=== PATIENT | female | born 1970 | race Caucasian/White ===

== ENCOUNTER → 2017-01-22 | Outpatient (CLI) | payer OTHER | LOC: MW.CHRC 09:50 | PROVIDERS: ATTEND Family Medicine | DX: Z00.00 Encounter for general adult medical examination without abnormal findings (principal); R07.89 Other chest pain; R00.2 Palpitations; Z53.9 Procedure and treatment not carried out, unspecified reason ==

== ENCOUNTER → 2017-01-28 | Outpatient (CLI) | payer OTHER ==
--- NOTE | 2017-01-29 08:59 | MR ---
EXAMINATION: MRI of the brain with and without contrast. TECHNIQUE: Multiplanar and multisequence imaging of the brain without and following the administrati on of 16 mL of MultiHance. HISTORY: Tremor. FINDINGS: Cerebral hemispheres and the deep nuclei are without hemorrhage, mass, edema, enhancement or atroph y. There are several subtle very tiny subcortical white matter FLAIR intensities noted .No abnorma l diffusion restriction. No extraaxial collections or hemorrhage. The ventricular system is of normal size and configuration without hydrocephalus. The brainstem and cerebellum are without hemorrhage, mass, edema, gliosis, en hancement or atrophy. The carotid basilar artery flow voids are intact. The otomastoid airspaces are clear. No internal auditory canal or cerebellopontine angle masses or enhancement. The paranasal sinuses are clear. Globes, optic nerves, orbital apices, optic chiasm, optic tracts, and visual cortices are unremarka ble. The pituitary and sella turcica are unremarkable. No meningeal enhancement. The craniocervic al junction is unremarkable. No siderosis or evidence of vascular malformation. The calvarium is intact. IMPRESSION: 1. Tiny subtle predominantly subcortical white matter FLAIR intensities, nonspecific. 2. Otherwise unremarkable MRI of the brain.
== END ==
LOC: MW.MRI 10:32
PROVIDERS: ATTEND Family Medicine
DX: G25.2 Other specified forms of tremor (principal)
CPT/HCPCS: 70553; 70553-26

== ENCOUNTER 2018-01-09 19:45 | Emergency (ER) | payer OTHER ==
--- NOTE | 2018-01-09 20:16 | EDM.PDOC ---
ED HPI GENERAL MEDICAL PROBLEM - General Chief Complaint: Lower Extremity Injury/Pain Stated Complaint: LEFT PINKIE TOE PAIN Time Seen by Provider: 01/09/18 20:05 Source of Information: Reports: Patient History Limitations: Reports: No Limitations - History of Present Illness INITIAL COMMENTS - FREE TEXT/NARRATIVE: HISTORY AND PHYSICAL: History of present illness: [Patient comes to the emergency room complaining of left fifth toe pain. She was trying to move her puppies out of the way when she smacked her toe against the kitchen counter. Her fifth toe moved laterally and the rest of her toes moved medially. She complains of pain and deformity to her fifth toe. No prior history of injury. She took some ibuprofen for her pain is provided some mild improvement.] Review of systems: As per history of present illness and below otherwise all systems reviewed and negative. Past medical history: As per history of present illness and as reviewed below otherwise noncontributory. Surgical history: As per history of present illness and as reviewed below otherwise noncontributory. Social history: No reported history of drug or alcohol abuse. Family history: As per history of present illness and as reviewed below otherwise noncontributory. Physical exam: HEENT: Atraumatic, normocephalic. Extremities: left fifth toe is displaced laterally and appears deformed. Is tender with palpation. Pedal pulses are 2+. Cap RF is less than 2 seconds. No foot pain with palpation. No other toe pain or deformity appreciated. Neurovascular unremarkable. Neuro: Awake, alert, oriented. Motor and sensory unremarkable throughout. Exam nonfocal. Diagnostics: [Left foot x-ray] Impression: [L 5th toe fracture] Plan: Discussed w/ patient that her toe is fractured. 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 Hydrocodone 5/325mg (#10) sig: One by mouth every 4-6 hours as needed for pain 0 refills sent to [facility]. alternate Tylenol w/ ibuprofen prn pain. Rest, ice , elevation. Strict return precautions are reviewed. Pt in agreement w/ today's plan. Definitive disposition and diagnosis as appropriate pending reevaluation and review of above. left 5th toe Pain Score (Numeric/FACES): 8 - Related Data Allergies Allergy/AdvReac Type Severity Reaction Status Date / Time No Known Allergies Allergy Verified 01/09/18 19:58 Home Meds: Home Meds ALPRAZolam [Alprazolam ER] 1 mg PO DAILY 11/08/16 [History] Amitriptyline [Elavil] 25 mg PO ONETIME 11/08/16 [History] Eletriptan HBr [Relpax] 20 mg PO DAILY 11/08/16 [History] Etodolac [Etodolac ER] 400 mg PO Q12HR PRN 11/08/16 [History] Levothyroxine [Synthroid] 100 mcg PO ACBREAKFAST 11/08/16 [History] Verapamil [Calan SR] 240 mg PO DAILY 11/08/16 [History] buPROPion HCl [buPROPion SR] 150 mg PO DAILY 11/08/16 [History] Past Medical History Other Cardiovascular History: MVP Endocrine/Metabolic History: Reports: Hyperthyroidism - Past Surgical History Female Surgical History: Reports: Endometrial Ablation Dermatological Surgical History: Reports: Plastic Surgical Reconstruction/Repair Social & Family History - Family History Family Medical History: Noncontributory - Tobacco Use Smoking Status *Q: Never Smoker - Alcohol Use Days Per Week of Alcohol Use: 2 Number of Drinks Per Day: 4 Total Drinks Per Week: 8 - Recreational Drug Use Recreational Drug Use: No Review of Systems - Review of Systems Review Of Systems: ROS reveals no pertinent complaints other than HPI. ED EXAM, GENERAL - Physical Exam Exam: See Below Course - Vital Signs Last Recorded V/S: Last Vital Signs Temp 97.3 F 01/09/18 21:30 Pulse 81 01/09/18 21:30 Resp 18 01/09/18 21:30 BP 127/88 01/09/18 21:30 Pulse Ox 99 01/09/18 21:30 Departure - Departure Time of Disposition: 21:07 Disposition: Home, Self-Care 01 Condition: Good Clinical Impression: Fracture of fifth toe, left, closed - Discharge Information Instructions: Toe Fracture Referrals: Juan Adler [Primary Care Provider] - Forms: ED Department Discharge Additional Instructions: The following information is given to patients seen in the emergency department who are being discharged to home. This information is to outline your options for follow-up care. We provide all patients seen in our emergency department with a follow-up referral. The need for follow-up, as well as the timing and circumstances, are variable depending upon the specifics of your emergency department visit. If you don't have a primary care physician on staff, we will provide you with a referral. We always advise you to contact your personal physician following an emergency department visit to inform them of the circumstance of the visit and for follow-up with them and/or the need for any referrals to a consulting specialist. The emergency department will also refer you to a specialist when appropriate. This referral assures that you have the opportunity for follow-up care with a specialist. All of these measure are taken in an effort to provide you with optimal care, which includes your follow-up. Under all circumstances we always encourage you to contact your private physician who remains a resource for coordinating your care. When calling for follow-up care, please make the office aware that this follow-up is from your recent emergency room visit. If for any reason you are refused follow-up, please contact the [facility] emergency department at and asked to speak to the emergency department charge nurse. Dr. Sherrie Fields [address] [place] [id number] Call the above listed clinic tomorrow morning to be scheduled for follow up. Continue ibuprofen 200 mg 3 tabs every 6 hours as needed for pain. You may take hydrocodone every 6 hours as needed for moderate to severe pain. Ice may help. Return to ER as needed as discussed.
[2018-01-10 01:01] VITALS: BP 127/88
--- NOTE | 2018-01-10 13:49 | CR ---
EXAM DATE: 01/09/18 PATIENT'S AGE: 47 Patient: TORREY RAMIRES Facility: [place], [place] Site Site : 1970 Study: XRay Extremity Left FOOT [id number]/1/2018 8:34:02 PM Ordering Physician: TOMY HAWKINS NP Final Report: Indication: 5th toe deformity, pain. Findings/Impression: Two portable views of the left foot demonstrates an oblique fracture of the distal diaphysis of the proximal phalanx of the little toe with 45 degrees of lateral angulation of the distal fracture fragment. This does not involve the articular surface. Dictated by Cheyenne Rader MD @ 01/09/2018 8:55:27 PM Dictated by: Cheyenne Rader MD @ 01/09/2018 20:55:35 (Electronic Signature) Report Signed by Proxy. STANLEY
== END 2018-01-09 21:38 | disposition home or self-care (01) ==
LOC: MW.ED 19:45
DX: S92.512A Displaced fracture of proximal phalanx of left lesser toe(s), initial encounter for closed fracture (principal); E05.90 Thyrotoxicosis, unspecified without thyrotoxic crisis or storm; W22.8XXA Striking against or struck by other objects, initial encounter; Z79.899 Other long term (current) drug therapy
CPT/HCPCS: 73620-26-LT; 73620-LT; 99283

== ENCOUNTER 2018-03-07 00:25 | Emergency (ER) | payer OTHER ==
[2018-03-07 00:43] VITALS: BP 123/63
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
== END 2018-03-07 00:50 ==
LOC: MW.ED 00:25
DX: Z02.89 Encounter for other administrative examinations (principal); E05.90 Thyrotoxicosis, unspecified without thyrotoxic crisis or storm; Z79.899 Other long term (current) drug therapy
CPT/HCPCS: 99282